=== PATIENT | male | born 1970 | race Caucasian/White ===

== ENCOUNTER 2017-03-11 19:51 | Emergency (ER) | payer OTHER ==
[2017-03-11 19:55] VITALS: TEMP 98.2
[2017-03-11 20:19] VITALS: BP 135/84; PULSE 65; RESP 15; O2SAT 96
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
[2017-03-11] MEDS ORDERED: ACETAMINOPHEN 500 MG TAB ONE (20:50)
[2017-03-11] MEDS ORDERED: ACETAMINOPHEN 500 MG TAB PO ONE (21:00)
[2017-03-11] MEDS ORDERED: IBUPROFEN 600 MG TAB PO ONE (21:39)
== END 2017-03-11 21:54 | disposition home or self-care (01) ==
DX: S16.1XXA Strain of muscle, fascia and tendon at neck level, initial encounter (principal); S09.90XA Unspecified injury of head, initial encounter; V89.2XXA Person injured in unspecified motor-vehicle accident, traffic, initial encounter; Y92.410 Unspecified street and highway as the place of occurrence of the external cause